=== PATIENT | male | born 1990 ===

== ENCOUNTER 2018-03-18 19:30 | Emergency (ER) | payer MEDICAID ==
[2018-03-18 19:36] VITALS: O2SAT 100
[2018-03-18 20:24] LABS: BASO # 0.1 K/uL (0.0-0.2); BASO % 0.8 % (0.0-2.0); EOS # 0.2 K/uL (0.0-0.7); EOS % 1.6 % (0.0-4.0); HEMOGLOBIN 14.9 g/dL (12.0-18.0); LYMPH # 4.2 K/uL (1.0-4.3); MEAN CELL VOLUME 86.5 fL (80.0-94.0); MEAN CORPUSCULAR HEMOGLOBIN 29.1 pg (27.0-31.0); MEAN CORPUSCULAR HGB CONC 33.6 g/dL (33.0-37.0); MEAN PLATELET VOLUME 8.1 fL (7.2-11.7); MONO # 0.8 K/uL (0.0-0.8); MONO % 6.6 % (0.0-10.0); NEUT # 6.4 K/uL (1.8-7.0); NRBC % 0.1 % (0.0-2.0); RBC 5.14 Mil/uL (4.40-5.90); RED CELL DISTRIBUTION WIDTH 13.2 % (11.5-14.5); WHITE BLOOD COUNT 11.7 K/uL (4.8-10.8)
[2018-03-18 20:40] LABS: ALB/GLOB RATIO 1.4 (1.0-2.1); ALBUMIN 4.7 g/dL (3.5-5.0); ALT/SGPT 89 U/L (21-72); AST/SGOT 38 U/L (17-59); BLOOD UREA NITROGEN 10 mg/dL (9-20); CALCIUM 9.5 mg/dl (8.6-10.4); GFR AFRICAN-AMERICAN > 60; GFR NON-AFRICAN AMERICAN > 60
[2018-03-18] MEDS ORDERED: Sodium Chloride 0.9% 1,000 ML IV SCH (21:15)
--- NOTE | 2018-03-18 21:19 | C.PDOC ---
History Of Present Illness 27 y/o male presents to ED c/o dizziness described as room spinning sensation, and blurred vision intermittently since yesterday. Notes he woke up with the symptoms yesterday and resolved spontaneously but returned again today. Denies having similar symptoms in the past. He admits to nausea, and abdominal pain. Denies vomiting, or diarrhea. Time Seen by Provider: 03/18/18 20:01 Chief Complaint (Nursing): Dizziness/Lightheaded History Per: Patient History/Exam Limitations: no limitations Past Medical History Reviewed: Historical Data, Nursing Documentation, Vital Signs Vital Signs: Last Vital Signs Temp 98 F 03/18/18 23:12 Pulse 81 03/18/18 23:12 Resp 20 03/18/18 23:12 BP 130/70 03/18/18 23:12 Pulse Ox 100 03/19/18 05:00 Family History: States: Unknown Family Hx - Social History Hx Alcohol Use: Yes Hx Substance Use: No Review Of Systems Except As Marked, All Systems Reviewed And Found Negative. Constitutional: Negative for: Fever, Chills Eyes: Positive for: Vision Change (slightly blurry vision./ pt is supposed to wear corrective eye wear and does not ) ENT: Negative for: Ear Pain, Ear Discharge, Nose Pain Cardiovascular: Negative for: Chest Pain, Palpitations, Orthopnea, Paroxysmal Noc. Dyspnea, Edema Respiratory: Negative for: Cough, Shortness of Breath Gastrointestinal: Positive for: Nausea, Abdominal Pain. Negative for: Vomiting , Diarrhea Genitourinary: Negative for: Dysuria, Frequency, Hematuria Musculoskeletal: Negative for: Neck Pain, Back Pain Neurological: Positive for: Dizziness. Negative for: Weakness, Numbness, Headache Psych: Negative for: Anxiety Physical Exam - Physical Exam Appears: Non-toxic, No Acute Distress Skin: Normal Color, Warm, Dry Head: Atraumatic, Normacephalic Eye(s): bilateral: Normal Inspection, PERRL, EOMI Ear(s): Bilateral: Normal Oral Mucosa: Moist Tongue: Normal Appearing Lips: Normal Appearing Teeth: Normal Dentition Gingiva: Normal Appearing Neck: Normal ROM, Supple Chest: Symmetrical Cardiovascular: Rhythm Regular Respiratory: Normal Breath Sounds, No Rales, No Rhonchi, No Wheezing Gastrointestinal/Abdominal: Bowel Sounds, Soft, No Tenderness, No Distention, No Guarding, No Rebound Back: No CVA Tenderness Extremity: Normal ROM, No Deformity Extremity: Bilateral: Atraumatic, No Pedal Edema, Normal Color And Temperature, Normal ROM Neurological/Psych: Oriented x3, Normal Speech, Normal Cognition, Normal Cranial Nerves, Normal Motor, Normal Sensation, Normal Reflexes ED Course And Treatment - Laboratory Results Result Diagrams: 03/18/18 20:21 03/18/18 20:21 ECG: Interpreted By Me ECG Rhythm: Sinus Rhythm (80 bpm) Interpretation Of ECG: CO-112. QRS-92. QT-394. QTC-454. no ischemic changes O2 Sat by Pulse Oximetry: 100 (RA) Pulse Ox Interpretation: Normal - CT Scan/US Head Other Rad Studies (CT/US): Read By Radiologist, Radiology Report Reviewed CT/US Interpretation: FINDINGS: Brain: No hemorrhage. No significant periventricular microischemic changes. No edema. Ventricles: Appropriate for patient's age. Bones/joints: No acute fracture. Soft tissues: No radiopaque foreign body. Sinuses: No acute sinusitis. Mastoid air cells: No mastoid effusion. IMPRESSION: No acute CT intracranial abnormalities. Medical Decision Making Medical Decision Making: Plan: Blood work CXR EKG Head CT IV fluids ct head neg cxr unremarkable labs unremarkable ekg unremarkable pt give our clinics to follow in. and ophthalmology follow up as well. Disposition Counseled Patient/Family Regarding: Diagnosis - Disposition [place] [facility] [place] [facility] [place] [facility] [Outside] [facility] [Outside] Tre Hanks [Staff Provider] - Disposition: HOME/ ROUTINE Disposition Time: 22:50 Condition: GOOD Additional Instructions: return if symptoms worsen Forms: [facility] (Amharic) - Clinical Impression Clinical Impression: Dizziness, Blurry vision - Scribe Statement The provider has reviewed the documentation as recorded by the Scribe KP All medical record entries made by the Scribe were at my direction and personally dictated by me. I have reviewed the chart and agree that the record accurately reflects my personal performance of the history, physical exam, medical decision making, and the department course for this patient. I have also personally directed, reviewed, and agree with the discharge instructions and disposition.
[2018-03-18 21:31] LABS: HDL CHOLESTEROL 27 mg/dL (30-70)
[2018-03-18 22:09] LABS: LDL CHOLESTEROL 140 mg/dL (0-129)
[2018-03-18 23:13] VITALS: BP 130/70; PULSE 81; RESP 20; TEMP 98
--- NOTE | 2018-03-19 08:15 | CT ---
Date of service: 03/18/2018 PROCEDURE: CT HEAD WITHOUT CONTRAST. HISTORY: blurry vision COMPARISON: None available. TECHNIQUE: Axial computed tomography images were obtained through the head/brain without intravenous contrast. Radiation dose: Total exam DLP = 869 mGy-cm. This CT exam was performed using one or more of the following dose reduction techniques: Automated exposure control, adjustment of the mA and/or kV according to patient size, and/or use of iterative reconstruction technique. FINDINGS: HEMORRHAGE: No intracranial hemorrhage. BRAIN: No mass effect or edema. No atrophy or chronic microvascular ischemic changes. Prominent cisterna magna. VENTRICLES: Unremarkable. No hydrocephalus. CALVARIUM: Unremarkable. PARANASAL SINUSES: Unremarkable as visualized. No significant inflammatory changes. MASTOID AIR CELLS: Unremarkable as visualized. No inflammatory changes. OTHER FINDINGS: None. IMPRESSION: No acute intracranial abnormality. If focal neurologic deficit persists, consider correlation with MRI. These findings were preliminarily reported at 9:59 p.m. on 03/18/[address] Bong Arias from [facility].
--- NOTE | 2018-03-19 11:37 | RAD ---
Chest x-ray two views History: Chest pain. Comparison: 03/18/2018 Findings: Mild venous congestion. Right hilar prominence. Heart size within normal limits. Impression: Mild venous congestion. Right hilar prominence.
--- NOTE | 2018-03-19 23:38 | CARD ---
APPROVED REPORT Date of service: 03/18/2018 EKG Measurement Heart [id number] [id number] <Conclusion> Normal sinus rhythm with sinus arrhythmia Normal ECG
== END 2018-03-18 23:12 | disposition home or self-care (01) ==
LOC: C.ER 19:30
DX: R42 Dizziness and giddiness (principal); H53.8 Other visual disturbances

== ENCOUNTER 2018-07-01 23:12 | Emergency (ER) | payer SELFPAY ==
[2018-07-01 23:27] VITALS: RESP 16; TEMP 98.1
--- NOTE | 2018-07-02 01:05 | C.PDOC ---
History Of Present Illness 28 year old male presents to the ED c/o dry mouth, headache, lightheadedness that started today while he was driving with a friend. Patient reports he in the ED on March for same with a negative work up and CT scan, only finding was elevated cholesterol. Patient reports symptoms now resolved came to the ED because he was concerned. Patient denies fever, chills, nausea, vomit, diarrhea, abdominal pain, visual changes, weakness, numbness. Time Seen by Provider: 07/01/18 23:51 Chief Complaint (Nursing): Headache History Per: Patient History/Exam Limitations: no limitations Onset/Duration Of Symptoms: Hrs Current Symptoms Are (Timing): Better Recent travel outside of the [place]: No Additional History Per: Patient Past Medical History Reviewed: Historical Data, Nursing Documentation, Vital Signs Vital Signs: Last Vital Signs Temp 98.1 F 07/01/18 23:21 Pulse 91 H 07/01/18 23:21 Resp 16 07/01/18 23:21 BP 124/74 07/01/18 23:21 Pulse Ox 100 07/01/18 23:21 - Medical History PMH: No Chronic Diseases Surgical History: No Surg Hx Family History: States: Unknown Family Hx - Social History Hx Alcohol Use: Yes Hx Substance Use: No - Immunization History Hx Tetanus Toxoid Vaccination: No Hx Influenza Vaccination: No Hx Pneumococcal Vaccination: No Review Of Systems Constitutional: Negative for: Fever, Chills Eyes: Negative for: Vision Change Cardiovascular: Negative for: Chest Pain Respiratory: Negative for: Cough, Shortness of Breath Gastrointestinal: Negative for: Nausea, Vomiting Neurological: Positive for: Headache, Dizziness. Negative for: Weakness, Numbness Physical Exam - Physical Exam Appears: Non-toxic, No Acute Distress Skin: Normal Color, Warm, Dry Head: Atraumatic, Normacephalic Eye(s): bilateral: Normal Inspection, PERRL, EOMI Oral Mucosa: Moist Neck: Normal ROM, Supple Chest: Symmetrical Cardiovascular: Rhythm Regular Respiratory: Normal Breath Sounds, No Rales, No Rhonchi, No Wheezing Gastrointestinal/Abdominal: Soft, No Tenderness, No Guarding, No Rebound Extremity: Normal ROM, No Tenderness, No Swelling Neurological/Psych: Oriented x3, Normal Speech, Normal Cognition, Normal Motor, Normal Sensation, Other (non focal) Gait: Steady ED Course And Treatment - Laboratory Results Result Diagrams: 07/02/18 00:55 07/02/18 00:55 ECG Rhythm: Sinus Rhythm ECG Interpretation: No Acute Changes Rate From EC (BPM) O2 Sat by Pulse Oximetry: 100 (ON RA) Pulse Ox Interpretation: Normal - Radiology CXR: Interpreted by Me CXR Interpretation: Yes: No Acute Disease Progress Note: Plan: - EKG. - CXR. - Labs. - UA. Negative work up, tolerates po, ambulatory, asymptomatic, no neuro deficit. Patient is stable to be d/c home with PMD follow up. Disposition - Disposition Disposition: HOME/ ROUTINE Disposition Time: 02:57 Condition: STABLE Additional Instructions: Follow up with your PMD within 1-2 days. Return to ED if feel worse. Instructions: Dizziness, Nonvertigo, (DC) Forms: [facility] (Lao) - Clinical Impression Clinical Impression: Dizziness, Headache - PA / FINANCIAL ANALYST / Resident Statement MD/DO has reviewed & agrees with the documentation as recorded. - Scribe Statement The provider has reviewed the documentation as recorded by the Scribe Juan Haynes All medical record entries made by the Scribe were at my direction and personally dictated by me. I have reviewed the chart and agree that the record accurately reflects my personal performance of the history, physical exam, medical decision making, and the department course for this patient. I have also personally directed, reviewed, and agree with the discharge instructions and disposition.
[2018-07-02 01:10] LABS: BASO # 0.1 K/uL (0.0-0.2); BASO % 0.7 % (0.0-2.0); EOS # 0.1 K/uL (0.0-0.7); EOS % 1.3 % (0.0-4.0); HEMOGLOBIN 14.9 g/dL (12.0-18.0); LYMPH # 2.6 K/uL (1.0-4.3); LYMPH % 25.7 % (20.0-40.0); MEAN CELL VOLUME 86.5 fL (80.0-94.0); MEAN CORPUSCULAR HEMOGLOBIN 29.3 pg (27.0-31.0); MEAN CORPUSCULAR HGB CONC 33.9 g/dL (33.0-37.0); MEAN PLATELET VOLUME 8.4 fL (7.2-11.7); MONO # 0.9 K/uL (0.0-0.8); MONO % 8.5 % (0.0-10.0); NEUT # 6.5 K/uL (1.8-7.0); NEUT % 63.8 % (50.0-75.0); RBC 5.08 Mil/uL (4.40-5.90); RED CELL DISTRIBUTION WIDTH 13.2 % (11.5-14.5); URINE BILIRUBIN NEGATIVE (NEGATIVE); URINE BLOOD NEGATIVE (NEGATIVE); URINE CLARITY Clear (Clear); URINE COLOR Straw (YELLOW); URINE GLUCOSE (UA) NORMAL (Normal); URINE LEUKOCYTE ESTERASE NEG Leu/uL (Negative); URINE PROTEIN NEGATIVE (NEGATIVE); URINE UROBILINOGEN NORMAL mg/dL (0.2-1.0); WHITE BLOOD COUNT 10.3 K/uL (4.8-10.8)
[2018-07-02 01:11] LABS: ALB/GLOB RATIO 1.4 (1.0-2.1); ALBUMIN 4.7 g/dL (3.5-5.0); ALT/SGPT 50 U/L (21-72); AST/SGOT 33 U/L (17-59); BLOOD UREA NITROGEN 13 mg/dL (9-20); CALCIUM 9.5 mg/dl (8.6-10.4); GFR NON-AFRICAN AMERICAN > 60; PARTIAL THROMBOPLASTIN TIME 26 SECONDS (21-34); PROTHROMBIN TIME 11.4 SECONDS (9.7-12.2)
[2018-07-02 01:15] LABS: D DIMER < 200 ng/mlDDU (0-243)
[2018-07-02 01:25] LABS: BARBITURATES, UR NEGATIVE (NEGATIVE); BENZODIAZEPINES, UR NEGATIVE (NEGATIVE); OPIATES, UR NEGATIVE (NEGATIVE); PHENCYCLIDINE, UR NEGATIVE (NEGATIVE)
[2018-07-02 01:29] LABS: CK-MB < 0.22 ng/mL (0.0-3.38)
[2018-07-02 03:18] VITALS: BP 126/71; PULSE 89
[2018-07-02 04:32] VITALS: O2SAT 100
--- NOTE | 2018-07-02 09:26 | RAD ---
Date of service: 07/02/2018 PROCEDURE: CHEST RADIOGRAPH, 1 VIEW HISTORY: Dizziness COMPARISON: 03/18/2018. FINDINGS: LUNGS: The lungs are well inflated and clear. PLEURA: No pneumothorax or pleural effusion. CARDIOVASCULAR: The heart is normal in size. No aortic atherosclerotic calcifications present. OSSEOUS STRUCTURES: Within normal limits for the patient's age. VISUALIZED UPPER ABDOMEN: Normal. OTHER FINDINGS: None. IMPRESSION: No active pulmonary disease.
--- NOTE | 2018-07-03 19:12 | CARD ---
APPROVED REPORT Date of service: 07/02/2018 EKG Measurement Heart [id number] <Conclusion> Normal sinus rhythm Normal ECG
== END 2018-07-02 03:15 | disposition home or self-care (01) ==
LOC: C.ER 23:12
DX: R51 Headache (principal); R42 Dizziness and giddiness
CPT/HCPCS: 71045; 80053; 81001; 82550; 82553; 82948; 85025; 85378; 85610; 85730; 93005; 99285; G0480